=== PATIENT | female | born 1960 | race Caucasian/White ===

== ENCOUNTER 2020-08-13 07:45 | Emergency (ER) | payer BC, MEDICAID ==
[~2020-08-13] VITALS: Ht 162.6 cm; Wt 113.9 kg
--- NOTE | 2020-08-13 07:50 | NUR ---
The patient is [id number] home, abdominal pain w/ nausea since last night s/p taking medical marijuana. No vomiting at this time. Respiration regular and unlabored. Attached to the monitor. Will continue to onitor the patient.
[2020-08-13] MEDS ORDERED: ONDANSETRON HCL/PF 4 MG/2 ML VIAL IVP ONE (08:00)
[2020-08-13] MEDS ORDERED: IV NS 0.9% 1,000 ML BAG IV ONE (08:00)
[2020-08-13] MEDS ORDERED: HALOPERIDOL LACTATE INJ 5 MG/ML VIAL IM ONE (08:00)
[2020-08-13] MEDS ORDERED: HALOPERIDOL LACTATE INJ 5 MG/ML VIAL ONE (08:05)
[2020-08-13] MEDS ORDERED: ONDANSETRON HCL/PF 4 MG/2 ML VIAL ONE (08:05)
[2020-08-13 08:16] LABS: BASOPHILS % (AUTO) 0.3 % (0.0-2.0); EOSINOPHILS % (AUTO) 0.1 % (0.0-6.0); HEMATOCRIT 40 % (33-45); HEMOGLOBIN 13.4 g/dL (11.5-14.8); LYMPHOCYTES # (AUTO) 2.1 /CMM (0.8-4.8); LYMPHOCYTES % (AUTO) 27.2 % (20.0-44.0); MEAN CORPUSCULAR HGB CONC 34 g/dl (31.0-36.0); MEAN CORPUSCULAR VOLUME 89 fL (82-100); MONOCYTES # (AUTO) 0.3 /CMM (0.1-1.30); MONOCYTES % (AUTO) 3.5 % (2.0-12.0); NEUTROPHILS # (AUTO) 5.4 /CMM (1.8-8.9); NEUTROPHILS % (AUTO) 68.9 % (43.0-81.0); PLATELET COUNT (AUTO) 250 /CMM (150-450); RED BLOOD CELL COUNT(AUTO) 4.45 MIL/uL (4.0-5.2); WHITE BLOOD COUNT (AUTO) 7.8 K/uL (4.3-11.0)
[2020-08-13 08:42] LABS: CALCIUM, SERUM 9.2 mg/dL (8.5-10.1); CREATININE 0.9 mg/dL (0.6-1.3); POTASSIUM 3.5 mmol/L (3.5-5.1)
[2020-08-13 08:48] LABS: ALBUMIN 3.8 g/dL (3.4-5.0); BILIRUBIN,DIRECT 0.1 mg/dL (0.0-0.2); BILIRUBIN,TOTAL 0.4 mg/dL (0.2-1.0)
[2020-08-13] MEDS ORDERED: diphenhydrAMINE HCL 50 MG/ML VIAL IV ONE (09:30)
[2020-08-13] MEDS ORDERED: diphenhydrAMINE HCL 50 MG/ML VIAL ONE (09:42)
[2020-08-13] MEDS ORDERED: ONDA4TAB5 PO (09:50)
[2020-08-13 10:03] VITALS: BP 133/78
--- NOTE | 2020-08-13 10:03 | NUR ---
The patient alert and oriented x4. Denies nausea/vomiting. Respiration regular and unlabored. Patient discharged to home in stable condition. Written and verbal after care instructions given. Patient verbalizes understanding of instruction.
== END 2020-08-13 10:04 | disposition home or self-care (01) ==
LOC: ER 07:49
DX: F12.90 Cannabis use, unspecified, uncomplicated (principal); R11.2 Nausea with vomiting, unspecified; R73.9 Hyperglycemia, unspecified; E66.01 Morbid (severe) obesity due to excess calories; Z68.41 Body mass index [BMI] 40.0-44.9, adult; Z88.5 Allergy status to narcotic agent
CPT/HCPCS: 36415; 71045; 80048; 80076; 83690; 85025; 96361; 96372; 96374; 96375; 99284; J1200; J1630; J2405; J7030